=== PATIENT | female | born 1935 | race Caucasian/White ===

== ENCOUNTER 2018-10-13 14:25 | Inpatient (IN) ==
[2018-10-13] MEDS ORDERED: Acetaminophen 325 MG TABLET PO PRN (18:55)
[2018-10-13] MEDS ORDERED: Mag Hydrox/Al Hydrox/Simeth 30 ML UDC PO PRN (18:55)
[2018-10-13] MEDS ORDERED: Ipratropium/Albuterol Neb 3 ML IH PRN (19:02)
[2018-10-13] MEDS ORDERED: Melatonin 3 MG TABLET PO PRN (19:03)
[2018-10-13] MEDS ORDERED: Metoprolol XL (24 HR) Succ 50 MG TAB.ER.24H PO SCH (21:00)
[2018-10-13] MEDS ORDERED: amLODIPine 5 MG TABLET PO SCH (21:00)
[2018-10-13] MEDS: ALPRAZolam 0.5 MG TABLET PO SCH (21:21)
[2018-10-13] MEDS: Oseltamivir Phosphate 30 MG CAPSULE PO SCH (21:21)
[2018-10-13] MEDS: amLODIPine 5 MG TABLET PO SCH (21:27)
[2018-10-13] MEDS: Metoprolol XL (24 HR) Succ 50 MG TAB.ER.24H PO SCH (21:28)
[2018-10-14 06:16] LABS: Eosinophils # 0.4 K/mcL (0.0-0.6); Eosinophils % 9.8 %; Hematocrit 30.4 % (35.3-44.9); Hemoglobin 10.1 g/dL (11.5-15.4); Lymphocytes # 1.7 K/mcL (0.6-4.6); Mean Corpuscular HGB Conc 33.2 g/dL (31.6-35.5); Mean Corpuscular Hemoglobin 29.6 pg (28.0-33.3); Mean Corpuscular Volume 89.1 fL (83.0-100.0); Mean Platelet Volume 9.5 fL (9.4-12.4); Monocytes # 0.4 K/mcL (0.0-1.3); Monocytes % 10.3 %; Neutrophils # 1.3 K/mcL (1.6-8.9); Platelet Count 228 K/mcL (140-400); Red Blood Count 3.41 M/mcL (3.82-4.97); Red Cell Distribution Width 13.1 % (11.5-14.5); Segmented Neutrophils % 34.4 %
[2018-10-14 06:37] LABS: Lymphocytes % 45.5 %
[2018-10-14 06:48] LABS: Calcium 8.7 mg/dL (8.6-10.3); Potassium 3.6 mEq/L (3.5-5.1)
[2018-10-14] MEDS: Oseltamivir Phosphate 30 MG CAPSULE PO SCH ×2 (09:25→21:19)
[2018-10-14] MEDS: Metoprolol XL (24 HR) Succ 50 MG TAB.ER.24H PO SCH ×2 (09:25→21:20)
--- NOTE | 2018-10-14 14:46 | Internal Med History&Physical ---
Date of Encounter: 10/15/18 Time of Encounter: 01:55 Assessment and Plan (1) Multiple falls Current visit: No Status: Acute deconditioning and weakness. Needs PT OT assessment pending (2) Depressive disorder, not elsewhere classified Current visit: No Status: Chronic stable denies SI no active issues continue current antidepressants. paxil and wellbutrin (3) Essential hypertension Current visit: No Status: Chronic stable continue current care including metoprolol and amlodipine. She is also plavix for PVD Internal Medicine - H&P: HPI Chief complaint: deconditioning Admitted From: Intrahospital Transfer History of present illness: Ms. Pulliam is a 83 year old female who was transfer to [place] for deconditioning and needs Rehab. She has been hospitalized with influenza A and has had increased debility and weakness. She states she has still some productive cough. She denies CP . Says she does not look at the sputum so does not know what it looks like. She does not like duonebs much. She does have some wheeze. She has had fair appetite. She did have BM She has hx of anxiety and says this is tolerable now with her medication. Past Med Surg Social Fam HX - Past Medical History Medical history: asthma, COPD, hyperlipidemia, hypertension, peripheral artery disease, RA, TIA Additional medical history: Asthma as child Psychiatric history: depression - Past Surgical History Surgical History: carotid endarterectomy, cataract, cholecystectomy Additional surgical history: renal stent - Social History Smoking Status: Former smoker Smokeless Tobacco Status: No Alcohol use: none Drug use: none - Family History Mother Adopted: No Family Member Ethnicity: Non- Living Status: Hx Family Cardiac Disorders: Yes Hx Family Respiratory Disorders: No Hx Family Cancer: No Hx Family GI Disorders: No Hx Family Endocrine Disorder: No Hx Family Neuromuscular Disorders: No Hx Family Neurologic Disorders: Yes (cva) Hx Family HEENT Disorders: No Hx Family Autoimmune Disorders: No Father Hx Family Cardiac Disorders: Yes Internal Medicine - H&P: Meds BuPROPion [Wellbutrin] 75 mg PO DAILY 10/11/18 [History] Clopidogrel [Plavix] 75 mg PO DAILY 10/11/18 [History] PARoxetine HCl [Paroxetine HCl] 10 mg PO DAILY 10/11/18 [History] Atorvastatin [Lipitor] 40 mg PO HS tablet 10/13/18 [Rx] Metoprolol Succinate [Toprol Xl] 25 mg PO BID #0 10/13/18 [Rx] Oseltamivir Phosphate [Tamiflu] 30 mg PO BID #7 capsule 10/13/18 [Rx] amLODIPine [Norvasc] 10 mg PO HS tablet 10/13/18 [Rx] Allergy/AdvReac Type Severity Reaction Status Date / Time Cephalosporins Allergy Hives Verified 12/02/17 11:46 Penicillins Allergy Hives Verified 12/02/17 11:46 Propoxycaine Allergy Hives Verified 12/02/17 11:46 Sulfa (Sulfonamide Allergy Hives Verified 12/02/17 11:46 Antibiotics) hydrocodone [From [place]] AdvReac Nausea Verified 12/02/17 11:46 All Systems PM: A 10-system review of systems was performed and is negative for pertinent findings except as documented above in the HPI. - Constitutional Vitals: Temp Pulse Resp BP Pulse Ox 97.6 F 81 16 147/83 97 10/14/18 07:23 10/14/18 07:23 10/14/18 07:23 10/14/18 07:23 10/14/18 07:23 - ENT ENT exam: Present: mucous membranes dry - Neck Neck exam general surgery: Present: normal inspection Additional comments: no mass - Respiratory Respiratory exam: Present: wheezes Additional comments: good effort - GI/Abdominal GI/Abdominal exam: Present: normal bowel sounds, soft Internal Med - H&P Results - Labs CBC & Chem 7: 10/14/18 05:30 10/14/18 05:30 Labs: Short CBC 10/14/18 Range/Units 05:30 WBC 3.8 L (4.3-11.1) K/mcL Hgb 10.1 L (11.5-15.4) g/dL Hct 30.4 L (35.3-44.9) % Plt Count 228 (140-400) K/mcL Neutrophils # 1.3 L (1.6-8.9) K/mcL BMP 10/14/18 05:30 Sodium 138 Potassium 3.6 Chloride 102 Carbon Dioxide 29 BUN 10 Creatinine 1.07 Glucose 95 Calcium 8.7 - VTE Documentation of Mechanical Device: Graduated compression elastic hosiery
[2018-10-14] MEDS: amLODIPine 5 MG TABLET PO SCH (21:18)
[2018-10-14] MEDS: ALPRAZolam 0.5 MG TABLET PO SCH (21:19)
[2018-10-15] MEDS: Oseltamivir Phosphate 30 MG CAPSULE PO SCH ×2 (08:53→21:20)
[2018-10-15] MEDS: Metoprolol XL (24 HR) Succ 50 MG TAB.ER.24H PO SCH ×2 (08:58→21:20)
--- NOTE | 2018-10-15 14:04 | Internal Med Progress Note ---
Date of Encounter: 10/15/18 Time of Encounter: 02:00 - Assessment and plan (1) Multiple falls Current Visit: No Status: Acute (2) Depressive disorder, not elsewhere classified Current Visit: No Status: Chronic (3) Essential hypertension Current Visit: No Status: Chronic - Subjective Interval history: Assessment and Plan (1) Multiple falls Current visit: No Status: Acute deconditioning and weakness. Needs PT OT assessment pending (2) Depressive disorder, not elsewhere classified Current visit: No Status: Chronic stable denies SI no active issues continue current antidepressants. paxil and wellbutrin (3) Essential hypertension Current visit: No Status: Chronic stable continue current care including metoprolol and amlodipine. She is also plavix for PVD She is on statin but does not like taking it. (4) Influenza A Treating with Tamilflu 7 day starting yesterday. Will send sputum Gram Stain and culture Resp status stable. some cough and some productive sputum on precautions. -: I Interval History Ms. Pulliam had stable overnight. She is a 83 year old female who was transfer to [place] for deconditioning and needs Rehab. She has been hospitalized with influenza A and has had increased debility and weakness. She states she has still some productive cough. She denies CP . Says she does not look at the sputum so does not know what it looks like. She does not like duonebs much. She does have some wheeze. She has had fair appetite. She did have BM She has hx of anxiety and says this is tolerable now with her medication. Her daughter in law is visiting today. - EXAM General frail WF NAD alert mild UPPER [place]IT - ENT ENT exam: Present: mucous membranes dry no lesions noted - Neck Neck exam general surgery: Present: normal inspection no goiter palp Additional comments: no mass - Respiratory Respiratory exam: Present: wheezes occas fair effort Additional comments: good effort - GI/Abdominal GI/Abdominal exam: Present: normal bowel sounds, soft no mass Ext Nontender pulse palp lts - Constitutional Vitals: Temp Pulse Resp BP Pulse Ox 98.1 F 73 16 140/77 96 10/15/18 07:57 10/15/18 07:57 10/15/18 07:57 10/15/18 07:57 10/15/18 07:57 Internal Medicine: Result - Labs CBC & Chem 7: 10/14/18 05:30 10/14/18 05:30 - VTE Documentation of Mechanical Device: Graduated compression elastic hosiery Consult Discharge Plan - Plan Referrals: Peg Call, [employer]HOU[employer] P[employer]ER [Primary Care Provider] -
[2018-10-15] MEDS: amLODIPine 5 MG TABLET PO SCH (21:20)
[2018-10-15] MEDS: ALPRAZolam 0.5 MG TABLET PO SCH (21:20)
--- NOTE | 2018-10-16 09:23 | Internal Med Progress Note ---
Date of Encounter: 10/16/18 Time of Encounter: 09:23 - Assessment and plan (1) Generalized weakness Current Visit: No Status: Acute Assessment and plan: She will be treated with OT, PT, support for ADLs. We will assess how her aidan gupta is coming, based on these therapies. (2) Multiple falls Current Visit: No Status: Acute Assessment and plan: She will be assessed from a safety standpoint, especially based on physical therapy (3) Anemia Current Visit: No Status: Chronic Assessment and plan: This is mild and apparently well tolerated. Will follow, peripherally. Vital signs are acceptable. This is apparently not related to MGUS but it is uncertain. Qualifiers: Anemia type: unspecified type Qualified Code(s): D64.9 - Anemia, unspecified - Subjective Interval history: Patient is unsure why she was here as an unsure as to why she went to the hospital. When we talked about her fluid and fall, she seemed to remember. She states that therapy is going well. She denies any acute symptoms. Patient has no complaint of chest discomfort, dyspnea, orthopnea, palpitations, nausea or vomiting, constipation or diarrhea, other changes in bowel habits, difficulty with urination, rash or itching, or other new complaints, except as mentioned above. Review of systems is otherwise negative. I discussed management of her care with nursing staff. - Constitutional Vitals: Temp Pulse Resp BP Pulse Ox 97.8 F 80 14 138/71 93 10/16/18 07:41 10/16/18 07:41 10/16/18 07:41 10/16/18 07:41 10/16/18 07:41 Exam: Examination: (Except as mentioned above): General: In no apparent distress. Alert and oriented 3. Nondiaphoretic. Head: Atraumatic and normocephalic. Respiratory: No use of accessory muscles. Lungs are clear throughout. Normal airflow. Cardiovascular: Regular rate and rhythm without murmur appreciated. Abdomen: Bowel sounds are normal. No hepatosplenomegaly mass or tenderness appreciated. Obese and therefore difficult to palpate deeply.Patient is examined upright in chair and this also limits exam. Extremities: No cyanosis clubbing or edema. Skin: Warm and non-diaphoretic with no new lesions noted. Internal Medicine: Result - Labs CBC & Chem 7: 10/14/18 05:30 10/14/18 05:30 - VTE Documentation of Mechanical Device: Graduated compression elastic hosiery Consult Discharge Plan - Plan Referrals: Peg Call, [employer] TE[employer] [Primary Care Provider] -
[2018-10-16] MEDS: Metoprolol XL (24 HR) Succ 50 MG TAB.ER.24H PO SCH ×2 (09:31→23:53)
[2018-10-16] MEDS: Oseltamivir Phosphate 30 MG CAPSULE PO SCH ×2 (09:31→23:53)
[2018-10-16] MEDS: ALPRAZolam 0.5 MG TABLET PO SCH (23:41)
[2018-10-16] MEDS: amLODIPine 5 MG TABLET PO SCH (23:41)
[2018-10-16] MEDS ORDERED: Oseltamivir Phosphate 30 MG CAPSULE PO SCH (23:45)
[2018-10-17] MEDS: Metoprolol XL (24 HR) Succ 50 MG TAB.ER.24H PO SCH ×2 (09:00→21:01)
--- NOTE | 2018-10-17 12:58 | Internal Med Progress Note ---
Addendum entered and electronically signed by Tristen Carter MD 10/17/18 15:56: I have personally performed a face to face evaluation on this patient. I have r eviewed and agree with the care plan. History and Exam by me shows: Patient is without complaint. She feels tired after therapies but states she is doing well. Her breathing is generally the same to slightly improved. She still has cough and it is more productive than before but not causing dyspnea or chest pain, etc. Discussed care with other providers and/or nursing. Patient has no complaint of chest discomfort, dyspnea, orthopnea, palpitations, nausea or vomiting, constipation or diarrhea, other changes in bowel habits, difficulty with urination, rash or itching, or other new complaints, except as mentioned above. Review of systems is otherwise negative. Examination: (Except as mentioned above): General: In no apparent distress. Alert and oriented 3. Nondiaphoretic. Head: Atraumatic and normocephalic. Respiratory: No use of accessory muscles. Lungs are clear throughout except for scattered sonorous rhonchi.. Normal airflow. Cardiovascular: Regular rate and rhythm without murmur appreciated. Abdomen: Bowel sounds are normal. No hepatosplenomegaly mass or tenderness appreciated. Obese and therefore difficult to palpate deeply. Patient is examined upright in chair and this also limits exam. Extremities: No cyanosis clubbing or edema. Skin: Warm and non-diaphoretic with no new lesions noted. We will continue as planned. She has completed her Tamiflu. Original Note: Date of Encounter: 10/17/18 Time of Encounter: 13:01 - Assessment and plan (1) Multiple falls Current Visit: Yes Status: Acute Assessment and plan: Patient currently appears relaxed and denies any discomforts. Patient observed ambulating with walker and assistance to therapy and appeared to be tolerating well. We will continue with current physical therapy and continue with current plan of care (2) COPD (chronic obstructive pulmonary disease) Current Visit: Yes Status: Chronic Assessment and plan: No acute issues. Patient does state a continue productive cough but no sputum has been observed. Lungs have fine rales her to posterior bases but otherwise clear. No dyspnea observed during ambulation with walker today. Afebrile. We will continue with current medications and plan a care Qualifiers: COPD type: unspecified COPD Qualified Code(s): J44.9 - Chronic obstructive pulmonary disease, unspecified (3) HTN (hypertension) Current Visit: Yes Status: Chronic Assessment and plan: Vital signs stable. We will continue with current medications. Qualifiers: Hypertension type: essential hypertension Qualified Code(s): I10 - Essential (primary) hypertension (4) Delirium Current Visit: Yes Status: Chronic Assessment and plan: No acute issues. No behavior issues reported per nursing. Patient was appropriate and cooperative during exam. We will continue to monitor. - Time Spent With Patient less than 15 minutes - Subjective Interval history: Patient appears relaxed and currently denies any discomforts or shortness of breath. Patient states she continues to have a productive cough but has had no sputum produced visualized. Patient states she feels her breathing is improving. No issues reported per nursing - Constitutional Vitals: Temp Pulse Resp BP Pulse Ox 98.1 F 78 16 123/68 91 10/17/18 08:00 10/17/18 08:00 10/17/18 08:00 10/17/18 08:00 10/17/18 08:00 General appearance: Present: A&O X 3, pleasant - Head Head exam: Present: atraumatic, normocephalic - Eye Eye exam: Present: PERRL, conjuntiva pink, sclera anicteric Pupils: Present: PERRL - Neck Neck exam general surgery: Present: supple, trachea midline. Absent: lymphadenopathy - Respiratory Respiratory exam: Present: CTAB, rales. Absent: accessory muscle use, rhonchi, wheezes Additional comments: Lungs are clear throughout upper sapp but noted fine posterior basilar rales heard. Respiratory effort appears relaxed. No productive cough noted - Cardiovascular Cardiovascular exam: Present: RRR, +S1, +S2. Absent: diastolic murmur, gallop, rubs, systolic murmur - GI/Abdominal GI/Abdominal exam: Present: normal bowel sounds, soft, no peritoneal signs. Absent: distended, tenderness - Extremities Exam Extremities exam: Present: warm, radial pulses palpable and symmetrical. Absent: calf tenderness, cyanotic, pedal edema - Neurological Exam Neurological exam: Present: CN II-XII intact, oriented X3, no focal deficits. Absent: pronater drift, facial droop, speech deficit - Skin Skin exam: Present: dry, intact Internal Medicine: Result - Labs CBC & Chem 7: 10/14/18 05:30 10/14/18 05:30 - VTE Documentation of Mechanical Device: Graduated compression elastic hosiery Consult Discharge Plan - Plan Referrals: Peg Call, [employer] DEVELOPER OPERATOR [Primary Care Provider] -
[2018-10-17] MEDS: amLODIPine 5 MG TABLET PO SCH (20:57)
[2018-10-17] MEDS: ALPRAZolam 0.5 MG TABLET PO SCH (20:58)
[2018-10-18] MEDS: Metoprolol XL (24 HR) Succ 50 MG TAB.ER.24H PO SCH ×2 (08:51→20:19)
--- NOTE | 2018-10-18 11:09 | Internal Med Progress Note ---
Addendum entered and electronically signed by Tristen Carter MD 10/18/18 11:12: I have personally performed a face to face evaluation on this patient. I have r eviewed and agree with the care plan. History and Exam by me shows: Patient without complaint. She is tired after therapy but otherwise is doing well. Sure cough is improved. She has no problems with dyspnea, beyond her baseline. Discussed care with other providers and/or nursing. Patient has no complaint of chest discomfort, dyspnea, orthopnea, palpitations, nausea or vomiting, constipation or diarrhea, other changes in bowel habits, difficulty with urination, rash or itching, or other new complaints, except as mentioned above. Review of systems is otherwise negative. Examination: (Except as mentioned above): General: In no apparent distress. Alert and oriented 3. Nondiaphoretic. Head: Atraumatic and normocephalic. Respiratory: No use of accessory muscles. Lungs are clear throughout. Normal airflow. Cardiovascular: Regular rate and rhythm without murmur appreciated. Abdomen: Bowel sounds are normal. No hepatosplenomegaly mass or tenderness appreciated. Obese and therefore difficult to palpate deeply. Patient is examined upright in chair and this also limits exam. Extremities: No cyanosis clubbing or change in edema. She still has 1-2+ pitting edema of lower extremities without cord or calf tenderness. Skin: Warm and non-diaphoretic with no new lesions noted. Original Note: Date of Encounter: 10/18/18 Time of Encounter: 11:07 - Assessment and plan (1) Multiple falls Current Visit: Yes Status: Acute Assessment and plan: Patient currently appears relaxed and denies any discomforts. Patient observed ambulating with walker and assistance to therapy and appeared to be tolerating well. Denies any dyspnea during ambulation. Therapy states the patient is progressing well. We will continue with current physical therapy and continue with current plan of care (2) COPD (chronic obstructive pulmonary disease) Current Visit: Yes Status: Chronic Assessment and plan: No acute issues. Patient does state a continue productive cough but no sputum has been observed. Lungs are clear. No dyspnea observed during ambulation with walker today. Afebrile. We will continue with current medications and plan a care Qualifiers: COPD type: unspecified COPD Qualified Code(s): J44.9 - Chronic obstructive pulmonary disease, unspecified (3) HTN (hypertension) Current Visit: Yes Status: Chronic Assessment and plan: Vital signs stable. We will continue with current medications. Qualifiers: Hypertension type: essential hypertension Qualified Code(s): I10 - Essential (primary) hypertension (4) Delirium Current Visit: Yes Status: Chronic Assessment and plan: No acute issues. No behavior issues reported per nursing. Patient was appropriate and cooperative during exam. We will continue to monitor. - Time Spent With Patient less than 15 minutes - Subjective Interval history: Patient appears relaxed and currently denies any discomforts or shortness of breath. Patient states she continues to have a productive cough but has had no sputum produced visualized. Patient states she feels her breathing is improving denies any dyspnea during ambulation. No issues reported per nursing - Constitutional Vitals: Temp Pulse Resp BP Pulse Ox 98.0 F 88 15 147/80 92 10/18/18 09:13 10/18/18 09:13 10/18/18 09:13 10/18/18 09:12 10/18/18 09:13 General appearance: Present: A&O X 3, pleasant - Head Head exam: Present: atraumatic, normocephalic - Eye Eye exam: Present: PERRL, conjuntiva pink, sclera anicteric Pupils: Present: PERRL - Neck Neck exam general surgery: Present: supple, trachea midline. Absent: lymphadenopathy - Respiratory Respiratory exam: Present: CTAB. Absent: accessory muscle use, rales, rhonchi, wheezes Additional comments: Lungs are clear throughout all sapp. Respiratory effort appears relaxed. Patient denies any productive cough. - Cardiovascular Cardiovascular exam: Present: RRR, +S1, +S2. Absent: diastolic murmur, gallop, rubs, systolic murmur - GI/Abdominal GI/Abdominal exam: Present: normal bowel sounds, soft, no peritoneal signs. Absent: distended, tenderness - Extremities Exam Extremities exam: Present: warm, radial pulses palpable and symmetrical. Absent: calf tenderness, cyanotic, pedal edema - Neurological Exam Neurological exam: Present: CN II-XII intact, oriented X3, no focal deficits. Absent: pronater drift, facial droop, speech deficit - Skin Skin exam: Present: dry, intact Internal Medicine: Result - Labs CBC & Chem 7: 10/14/18 05:30 10/14/18 05:30 - VTE Documentation of Mechanical Device: Graduated compression elastic hosiery Consult Discharge Plan - Plan Referrals: Peg Call, LAUNDRY ROUTEMAN [Primary Care Provider] -
--- NOTE | 2018-10-18 13:18 | Discharge Summary ---
Addendum entered and electronically signed by Tristen Carter MD 10/19/18 10:51: I have personally performed a face to face evaluation on this patient. I have r eviewed and agree with the care plan. History and Exam by me shows: Patient is without complaint except she did not sleep well last night and feels tired this morning. She has persistent cough but no shortness of breath. No change in productivity. Discussed care with other providers and/or nursing. Patient has no complaint of chest discomfort, dyspnea, orthopnea, palpitations, nausea or vomiting, constipation or diarrhea, other changes in bowel habits, difficulty with urination, rash or itching, or other new complaints, except as mentioned above. Review of systems is otherwise negative. Examination: (Except as mentioned above): General: In no apparent distress. Alert and oriented 3. Nondiaphoretic. Head: Atraumatic and normocephalic. Respiratory: No use of accessory muscles. Lungs are clear throughout. Normal airflow. She does, however, have rattling that sounds to be upper airway Cardiovascular: Regular rate and rhythm without murmur appreciated. Abdomen: Bowel sounds are normal. No hepatosplenomegaly mass or tenderness appreciated. Obese and therefore difficult to palpate deeply. Extremities: No cyanosis clubbing or edema. Skin: Warm and non-diaphoretic with no new lesions noted. I informed patient and daughter that she may have cough which lasts for 1-5 weeks after influenza. If she has any shortness of breath or fevers, etc., she is to seek medical attention urgently. The patient asks if she has any heart problems. I told her that we have nothing new here to suggest so. If she has questions, I deferred them to her primary care physician. Original Note: Orders not resulted at time of discharge: Pending orders 10/15/18 13:55 Culture,Sputum with Gram Stain [RM] Routine Date of Encounter: 10/19/18 Time of Encounter: 08:34 - Discharge Diagnosis (1) Multiple falls Priority: Primary Status: Acute (2) COPD (chronic obstructive pulmonary disease) Priority: Secondary Status: Chronic Qualifiers: COPD type: unspecified COPD Qualified Code(s): J44.9 - Chronic obstructive pulmonary disease, unspecified (3) HTN (hypertension) Priority: Secondary Status: Chronic Qualifiers: Hypertension type: essential hypertension Qualified Code(s): I10 - Essential (primary) hypertension (4) Delirium Priority: Secondary Status: Chronic Hospital course: Ms. Pulliam is a 83 year old female, who was transfer to [place] for deconditioning and needs Rehab. She has been hospitalized with influenza A and has had increased debility and weakness. Patient has a history of COPD. Patient is patient in physical therapy and progressed well. Patient has ambulated greater than 30 feet showed no dyspnea. Patient has remained afebrile during her stay. Patient is to continue her physical therapy [facility] and is recommended to follow up with her PCP. Discharge discussed with: patient Time spent discussing smoking cessation with patient: 3 to 10 minutes - Time Spent with Patient Total time spent providing and/or coordinating discharge services: Time spent: Less than 30 minutes - Discharge Medications Prescriptions: No Action BuPROPion [Wellbutrin] 75 mg PO DAILY Clopidogrel [Plavix] 75 mg PO DAILY PARoxetine HCl [Paroxetine HCl] 10 mg PO DAILY amLODIPine [Norvasc] 10 mg PO HS tablet Oseltamivir Phosphate [Tamiflu] 30 mg PO BID #7 capsule Metoprolol Succinate [Toprol Xl] 25 mg PO BID #0 Atorvastatin [Lipitor] 40 mg PO HS tablet Home Medications: BuPROPion [Wellbutrin] 75 mg PO DAILY 10/11/18 [History] Clopidogrel [Plavix] 75 mg PO DAILY 10/11/18 [History] PARoxetine HCl [Paroxetine HCl] 10 mg PO DAILY 10/11/18 [History] Atorvastatin [Lipitor] 40 mg PO HS tablet 10/13/18 [Rx] Metoprolol Succinate [Toprol Xl] 25 mg PO BID #0 10/13/18 [Rx] Oseltamivir Phosphate [Tamiflu] 30 mg PO BID #7 capsule 10/13/18 [Rx] amLODIPine [Norvasc] 10 mg PO HS tablet 10/13/18 [Rx] Allergies/Adverse Reactions: Allergy/AdvReac Type Severity Reaction Status Date / Time Cephalosporins Allergy Hives Verified 12/02/17 11:46 Penicillins Allergy Hives Verified 12/02/17 11:46 Propoxycaine Allergy Hives Verified 12/02/17 11:46 Sulfa (Sulfonamide Allergy Hives Verified 12/02/17 11:46 Antibiotics) atorvastatin [From Lipitor] AdvReac Back Pain Verified 10/15/18 17:26 hydrocodone [From [place]] AdvReac Nausea Verified 12/02/17 11:46 Date of admission: 10/13/18 17:14 Primary care physician: Peg Call CNP Consults: 10/13/18 18:50 Consult to Occupational Therapy [CONS] Routine Comment: Evaluate, develop and implement POC Reason for Consult: eval Does patient have active BEDREST order?: No Is patient medically & hemodynamically stable?: Yes Consult to Physical Therapy [CONS] Routine Comment: Evaluate, develop and implement POC Reason for Consult: eval Does patient have active BEDREST order?: No Is patient medically & hemodynamically stable?: Yes Consult to Recreational Therapy [CONS] Routine Comment: Evaluate, develop and implement POC Consult to Auditing Manager [CONS] Routine Reason for SW Consult: d/c planning 10/13/18 19:04 Consult to Physical Medicine/Rehab [CONS] Routine Reason for Consult: Please evaluate and manage therapies' guidelines and recommend pathway to reconditioning. Call Completed: Yes Discharging clinician: Tristen Carter - Constitutional Vitals: Temp Pulse Resp BP Pulse Ox 98.0 F 88 15 147/80 92 10/18/18 09:13 10/18/18 09:13 10/18/18 09:13 10/18/18 09:12 10/18/18 09:13 General appearance: Present: A&O X 3, pleasant - Head Head exam: Present: atraumatic, normocephalic - Eye Eye exam: Present: PERRL, conjuntiva pink, sclera anicteric Pupils: Present: PERRL - Neck Neck exam general surgery: Present: supple, trachea midline. Absent: lymphadenopathy - Respiratory Respiratory exam: Present: decreased breath sounds, CTAB. Absent: accessory muscle use, rales, rhonchi, wheezes Additional comments: Lungs are clear throughout with slightly diminished breath sounds to bases. Respiratory effort appears relaxed. No productive cough. Afebrile. - Cardiovascular Cardiovascular exam: Present: RRR, +S1, +S2. Absent: diastolic murmur, gallop, rubs, systolic murmur - GI/Abdominal GI/Abdominal exam: Present: normal bowel sounds, soft, no peritoneal signs. Absent: distended, tenderness - Extremities Exam Extremities exam: Present: warm, radial pulses palpable and symmetrical. Absent: calf tenderness, cyanotic, pedal edema - Neurological Exam Neurological exam: Present: CN II-XII intact, oriented X3, no focal deficits. Absent: pronater drift, facial droop, speech deficit - Skin Skin exam: Present: dry, intact - Patient Status Disposition: Transfer SNF Condition: Good Functional capacity at discharge: uses cane/walker Overall status at discharge: patient is progressing back to baseline - Discharge Instructions Follow Up With: Peg Call, [employer]IST [Primary Care Provider] - - Diet and Activity Activity: ambulate only with your walker, as per physical therapy, increase activity as tolerated Diet: low fat, low cholesterol, low salt diet - VTE Documentation of Mechanical Device: Graduated compression elastic hosiery
[2018-10-18] MEDS: amLODIPine 5 MG TABLET PO SCH (20:18)
[2018-10-18] MEDS: ALPRAZolam 0.5 MG TABLET PO SCH (20:18)
--- NOTE | 2018-10-19 08:37 | Physician Discharge Referral ---
Addendum entered and electronically signed by Tristen Carter MD 10/19/18 10:50: Original Note: Home Health/Hosp Referral Info Transfer to: Home Health Provider in Charge Post Discharge: PCP - Diagnosis (1) Multiple falls Priority: Primary Status: Acute (2) COPD (chronic obstructive pulmonary disease) Priority: Secondary Status: Chronic (3) HTN (hypertension) Priority: Secondary Status: Chronic (4) Delirium Priority: Secondary Status: Chronic - Respiratory Orders Smoking Cessation: Smoking cessation has been advised. For more information, call the [place] Tobacco Quit Line at 5-893-VEQB-NOW. - Diet/Nutrition Diet/Nutrition Orders: No Added Salt (KAPIL), Cardiac - Activity Activity Orders: Walker - Services Needed Following services are medically necessary services: Nursing, Home Health Aide, Physical Therapy, Occupational Therapy - Transfer Medications Home Medications: BuPROPion [Wellbutrin] 75 mg PO DAILY 10/11/18 [History] Clopidogrel [Plavix] 75 mg PO DAILY 10/11/18 [History] PARoxetine HCl [Paroxetine HCl] 10 mg PO DAILY 10/11/18 [History] Atorvastatin [Lipitor] 40 mg PO HS tablet 10/13/18 [Rx] Metoprolol Succinate [Toprol Xl] 25 mg PO BID #0 10/13/18 [Rx] Oseltamivir Phosphate [Tamiflu] 30 mg PO BID #7 capsule 10/13/18 [Rx] amLODIPine [Norvasc] 10 mg PO HS tablet 10/13/18 [Rx] Allergies/Adverse Reactions: Allergy/AdvReac Type Severity Reaction Status Date / Time Cephalosporins Allergy Hives Verified 12/02/17 11:46 Penicillins Allergy Hives Verified 12/02/17 11:46 Propoxycaine Allergy Hives Verified 12/02/17 11:46 Sulfa (Sulfonamide Allergy Hives Verified 12/02/17 11:46 Antibiotics) atorvastatin [From Lipitor] AdvReac Back Pain Verified 10/15/18 17:26 hydrocodone [From [place]] AdvReac Nausea Verified 12/02/17 11:46 Certification: Further, I certify that my clinical findings support that this patient is homebound (i.e. absences from home require considerable and taxing effort and are for medical reasons or gnosticist services or infrequently or short duration when for other reasons) because: Homebound Reason: Leaving home requires considerable and taxing effort due to condition Attestation: My signature below is to certify that this patient is under my care and that I, or nurse practitioner, or a physician's machine operator assistant working with me, has a [id number] encounter with this patient.
[2018-10-19 08:39] VITALS: BP 145/81
[2018-10-19] MEDS: Metoprolol XL (24 HR) Succ 50 MG TAB.ER.24H PO SCH (09:32)
== END 2018-10-19 12:15 | DRG 946 ==
LOC: INPGRE 17:14